=== PATIENT | male | born 1990 | race Caucasian/White ===

== ENCOUNTER 2020-05-20 09:33 | Emergency (ER) | payer MEDICARE, MEDICAID ==
[~2020-05-20] VITALS: Ht 167.6 cm; Wt 100.0 kg
[~2020-05-20 09:33] MED LIST: CLOZ100T32 PO; DOCU-350 PO; FISH1CAP49 PO; OMEP20 PO
[2020-05-20 10:15] LABS: BASOPHILS % (AUTO) 0.9 % (0.0-2.0); EOSINOPHILS % (AUTO) 2.4 % (1.0-6.0); HEMATOCRIT 43.4 % (41-53); HEMOGLOBIN 14.6 g/dL (13.5-17.5); LYMPHOCYTES # (AUTO) 2.1 K/uL (1.0-4.8); LYMPHOCYTES % (AUTO) 18.8 % (22.0-44.0); MEAN CORPUSCULAR HEMOGLOBIN 29.9 pg (26.0-34.0); MEAN CORPUSCULAR HGB CONC 33.8 G/dL (31.0-37.0); MEAN CORPUSCULAR VOLUME 89 fL (80-100); MONOCYTES # (AUTO) 0.8 K/uL (0.1-1.0); MONOCYTES % (AUTO) 7.4 % (2.0-9.0); NEUTROPHILS # (AUTO) 7.7 K/uL (1.8-7.7); NEUTROPHILS % (AUTO) 70.5 % (40.0-70.0); PLATELET COUNT (AUTO) 256 K/uL (150-450); RED BLOOD CELL COUNT(AUTO) 4.89 MIL/uL (4.50-5.90); RED CELL DISTRIBUTION WIDTH 13.3 % (11.5-14.5)
[2020-05-20 10:24] LABS: ANION GAP 3 mmol/L (8-16); CALCIUM, TOTAL 9.3 mg/dL (8.8-10.5); CARBON DIOXIDE 33 mmol/L (22-29); CHLORIDE 106 mmol/L (98-107); CREATININE 0.83 mg/dL (0.60-1.30); GLOMERULAR FILTR. RATE CALC > 60 mL/min (>60); GLUCOSE,RANDOM 102 mg/dL (70-110); SODIUM SERUM 142 mmol/L (136-145); UREA NITROGEN, BLOOD 9 mg/dL (7-18)
[2020-05-20 10:30] LABS: ALANINE AMINOTRANSFERASE 54 U/L (12-78); ALBUMIN 3.4 g/dL (3.4-5.0); ALKALINE PHOSPHATASE 81 U/L (46-116); ASPARTATE AMINOTRANSFERASE 22 U/L (15-37); BILIRUBIN,TOTAL 0.3 mg/dL (0.1-1.0); TOTAL PROTEIN, SERUM 7.9 g/dL (6.4-8.2)
[2020-05-20 11:53] LABS: AMPHET/METH SCREEN,URINE NEGATIVE (NEGATIVE); BARBITURATE SCREEN, URINE NEGATIVE (NEGATIVE); BENZODIAZEPINES SCREEN,URINE NEGATIVE (NEGATIVE); CANNABINOID SCREEN,URINE NEGATIVE (NEGATIVE); COCAINE SCREEN,URINE NEGATIVE (NEGATIVE); METHADONE SCREEN, URINE NEGATIVE (NEGATIVE); OPIATE SCREEN,URINE NEGATIVE (NEGATIVE); PHENCYCLIDINE SCREEN,URINE NEGATIVE (NEGATIVE)
[2020-05-20] MEDS ORDERED: LORazepam 1 MG TABLET PO ONE (12:00)
[2020-05-20] MEDS ORDERED: OLANZapine 5 MG TABLET PO ONE (12:00)
[2020-05-20 12:16] VITALS: BP 118/78
== END 2020-05-20 12:21 | disposition home or self-care (01) ==
LOC: EMS 09:34
DX: F20.9 Schizophrenia, unspecified (principal); F41.9 Anxiety disorder, unspecified; E11.9 Type 2 diabetes mellitus without complications; Z88.8 Allergy status to other drugs, medicaments and biological substances; Z79.899 Other long term (current) drug therapy
CPT/HCPCS: 36415; 80053; 80307; 85025; 99284; G0480

== ENCOUNTER 2021-03-23 18:59 | Inpatient (IN) | payer MEDICARE, MEDICAID ==
[~2021-03-23] VITALS: Ht 157.5 cm; Wt 71.5 kg
[2021-03-23] MEDS ORDERED: FISH1 PO (19:53)
[2021-03-23 19:56] LABS: BASOPHILS % (AUTO) 0.6 % (0.0-2.0); EOSINOPHILS % (AUTO) 2.1 % (1.0-6.0); HEMATOCRIT 45.2 % (41-53); HEMOGLOBIN 14.6 g/dL (13.5-17.5); LYMPHOCYTES # (AUTO) 2.6 K/uL (1.0-4.8); LYMPHOCYTES % (AUTO) 18.5 % (22.0-44.0); MEAN CORPUSCULAR HEMOGLOBIN 28.2 pg (26.0-34.0); MEAN CORPUSCULAR HGB CONC 32.3 G/dL (31.0-37.0); MEAN CORPUSCULAR VOLUME 88 fL (80-100); MONOCYTES # (AUTO) 0.9 K/uL (0.1-1.0); MONOCYTES % (AUTO) 6.1 % (2.0-9.0); NEUTROPHILS # (AUTO) 10.2 K/uL (1.8-7.7); NEUTROPHILS % (AUTO) 72.7 % (40.0-70.0); PLATELET COUNT (AUTO) 293 K/uL (150-450); RED BLOOD CELL COUNT(AUTO) 5.17 MIL/uL (4.50-5.90); RED CELL DISTRIBUTION WIDTH 14.8 % (11.5-14.5)
[2021-03-23 20:05] LABS: ANION GAP 7 mmol/L (8-16); CALCIUM, TOTAL 8.6 mg/dL (8.8-10.5); CARBON DIOXIDE 26 mmol/L (22-29); CHLORIDE 105 mmol/L (98-107); CREATININE 0.65 mg/dL (0.60-1.30); GLOMERULAR FILTR. RATE CALC > 60 mL/min (>60); GLUCOSE,RANDOM 112 mg/dL (70-110); POTASSIUM 3.6 mmol/L (3.5-5.1); SODIUM SERUM 138 mmol/L (136-145); UREA NITROGEN, BLOOD 10 mg/dL (7-18)
[2021-03-23 20:11] LABS: ALANINE AMINOTRANSFERASE 113 U/L (12-78); ALKALINE PHOSPHATASE 133 U/L (46-116); ASPARTATE AMINOTRANSFERASE 43 U/L (15-37); BILIRUBIN,TOTAL 0.2 mg/dL (0.1-1.0); TOTAL PROTEIN, SERUM 8.1 g/dL (6.4-8.2)
[2021-03-23 20:39] LABS: AMPHET/METH SCREEN,URINE NEGATIVE (NEGATIVE); BARBITURATE SCREEN, URINE NEGATIVE (NEGATIVE); BENZODIAZEPINES SCREEN,URINE NEGATIVE (NEGATIVE); CANNABINOID SCREEN,URINE NEGATIVE (NEGATIVE); COCAINE SCREEN,URINE NEGATIVE (NEGATIVE); METHADONE SCREEN, URINE NEGATIVE (NEGATIVE); OPIATE SCREEN,URINE NEGATIVE (NEGATIVE); PHENCYCLIDINE SCREEN,URINE NEGATIVE (NEGATIVE)
[2021-03-23] MEDS ORDERED: OLANZapine 5 MG RAPDIS TABLET PO PRN (21:00)
[2021-03-23] MEDS ORDERED: ZOLPIDEM TARTRATE 10 MG TABLET PO PRN (21:00)
[2021-03-23 22:01] LABS: COVID AG,FIA SOURCE NASOPHARYNGEAL
[2021-03-23 22:38] LABS: APPEARANCE,URINE CLEAR (CLEAR); BILIRUBIN,URINE NEGATIVE (NEGATIVE); GLUCOSE, URINE (UA) NEGATIVE (NEGATIVE); KETONES,URINE NEGATIVE (NEGATIVE); LEUKOCYTE ESTERASE ,URINE NEGATIVE (NEGATIVE); NITRATE,URINE NEGATIVE (NEGATIVE); OCCULT BLOOD,URINE NEGATIVE (NEGATIVE); PROTEIN,URINE NEGATIVE (NEGATIVE)
[2021-03-24] MEDS: LORazepam 2 MG TABLET PO PRN ×3 (00:37→17:03)
[2021-03-24 01:04] VITALS: BP 128/88
[2021-03-24 06:24] VITALS: BP 121/85
[2021-03-24] MEDS ORDERED: BACITRACIN 28 GM OINTMENT TP PRN (06:30)
[2021-03-24] MEDS ORDERED: PETROLATUM,WHITE 28 GM JELLY TP PRN (06:30)
[2021-03-24] MEDS ORDERED: BENZOCAINE/MENTHOL LOZENGE PO PRN (06:30)
[2021-03-24] MEDS ORDERED: OMEPRAZOLE 20 MG CAPSULE PO PRN (06:30)
[2021-03-24] MEDS ORDERED: MAGNESIUM HYDROXIDE SUSPENSION 30 ML UDCUP PO PRN ×2 (06:30→17:45)
[2021-03-24] MEDS ORDERED: LOPERAMIDE HCL 2 MG CAPSULE PO PRN ×2 (06:30→17:45)
[2021-03-24] MEDS ORDERED: ACETAMINOPHEN 325 MG TABLET PO PRN (06:30)
[2021-03-24] MEDS ORDERED: CloNIDine HCL 0.1 MG TABLET PO PRN (06:30)
[2021-03-24] MEDS ORDERED: ONDANSETRON HCL 4 MG TABLET PO PRN (06:30)
[2021-03-24] MEDS ORDERED: IBUPROFEN 600 MG TABLET PO PRN (06:30)
[2021-03-24] MEDS ORDERED: MAG HYDROX/AL HYDROX/SIMETH ES 30 ML SUSPENSION UDCUP PO PRN ×2 (06:30→17:45)
[2021-03-24] MEDS ORDERED: DOCUSATE SODIUM 100 MG CAPSULE PO PRN (06:30)
[2021-03-24] MEDS ORDERED: ALBUTEROL SULFATE HFA 90 MCG/PUFF 8 GM INHALER IH PRN (06:30)
[2021-03-24 07:51] LABS: CHOL/HDL RATIO 4.4 (4.2-7.3)
[2021-03-24] MEDS ORDERED: OMEGA-3/DHA/EPA/FISH OIL 1,000 MG CAPSULE PO SCH (09:00)
[2021-03-24 09:26] VITALS: BP 132/76
[2021-03-24 16:53] VITALS: BP 133/81
[2021-03-24] MEDS ORDERED: PROMETHAZINE HCL 25 MG TABLET PO PRN (17:45)
[2021-03-24] MEDS ORDERED: HydrOXYzine PAMOATE 50 MG CAPSULE PO PRN (17:45)
[2021-03-24] MEDS ORDERED: TUBERCULIN, PURIFIED PROTEIN DERIVATIVE 5 TU/0.1 ML SYRINGE ID ONE (17:45)
[2021-03-24] MEDS ORDERED: GABAPENTIN 400 MG CAPSULE PO PRN (18:15)
[2021-03-24] MEDS: MELATONIN 5 MG TABLET PO SCH (20:44)
[2021-03-25 06:06] VITALS: BP 115/69
[2021-03-25 07:19] LABS: BASOPHILS % (AUTO) 0.5 % (0.0-2.0); EOSINOPHILS % (AUTO) 1.8 % (1.0-6.0); HEMATOCRIT 48.2 % (41-53); HEMOGLOBIN 15.4 g/dL (13.5-17.5); LYMPHOCYTES # (AUTO) 3.8 K/uL (1.0-4.8); LYMPHOCYTES % (AUTO) 28.9 % (22.0-44.0); MEAN CORPUSCULAR HEMOGLOBIN 28.8 pg (26.0-34.0); MEAN CORPUSCULAR VOLUME 90 fL (80-100); MONOCYTES # (AUTO) 0.6 K/uL (0.1-1.0); MONOCYTES % (AUTO) 4.3 % (2.0-9.0); NEUTROPHILS # (AUTO) 8.4 K/uL (1.8-7.7); NEUTROPHILS % (AUTO) 64.5 % (40.0-70.0); PLATELET COUNT (AUTO) 323 K/uL (150-450); RED BLOOD CELL COUNT(AUTO) 5.37 MIL/uL (4.50-5.90); RED CELL DISTRIBUTION WIDTH 14.8 % (11.5-14.5)
[2021-03-25 07:44] LABS: ALANINE AMINOTRANSFERASE 126 U/L (12-78); ALBUMIN 3.3 g/dL (3.4-5.0); ALKALINE PHOSPHATASE 143 U/L (46-116); ANION GAP 4 mmol/L (8-16); ASPARTATE AMINOTRANSFERASE 67 U/L (15-37); BILIRUBIN,TOTAL 0.4 mg/dL (0.1-1.0); CALCIUM, TOTAL 9.1 mg/dL (8.8-10.5); CARBON DIOXIDE 31 mmol/L (22-29); CHLORIDE 102 mmol/L (98-107); CREATININE 0.86 mg/dL (0.60-1.30); GLOMERULAR FILTR. RATE CALC > 60 mL/min (>60); GLUCOSE,RANDOM 112 mg/dL (70-110); POTASSIUM 3.3 mmol/L (3.5-5.1); SODIUM SERUM 137 mmol/L (136-145); THYROID STIMULATING HORMONE 4.66 uIU/mL (0.36-3.74); TOTAL PROTEIN, SERUM 8.7 g/dL (6.4-8.2); UREA NITROGEN, BLOOD 9 mg/dL (7-18)
[2021-03-25 07:52] LABS: HEMOGLOBIN A1C 7.9 % (3.8-5.6)
[2021-03-25 08:54] VITALS: BP 129/74
[2021-03-25] MEDS ORDERED: CloZAPine 25 MG TABLET PO SCH (09:00)
[2021-03-25] MEDS: FOLIC ACID 1 MG TABLET PO SCH (09:58)
[2021-03-25] MEDS: NALTREXONE HCL 50 MG TABLET PO SCH (09:59)
[2021-03-25] MEDS: THIAMINE 100 MG TABLET PO SCH ×2 (09:59→16:32)
[2021-03-25] MEDS: MULTIVITAMINS WITH MINERALS, THERAPEUTIC TABLET PO SCH (09:59)
[2021-03-25] MEDS: OMEGA-3/DHA/EPA/FISH OIL 1,000 MG CAPSULE PO SCH (09:59)
[2021-03-25] MEDS ORDERED: POTASSIUM CHLORIDE 20 MEQ ER TABLET PO ONE (11:45)
[2021-03-25] MEDS ORDERED: HALOPERIDOL 5 MG TABLET PO PRN (16:15)
[2021-03-25] MEDS ORDERED: HALOPERIDOL DECANOATE 50 MG/ML VIAL IM ONE (16:15)
[2021-03-25 16:38] VITALS: BP 120/69
[2021-03-25] MEDS: MELATONIN 5 MG TABLET PO SCH (20:54)
[2021-03-25] MEDS ORDERED: HALOPERIDOL 10 MG TABLET PO SCH (21:00)
[2021-03-26 01:53] VITALS: BP 106/66
[2021-03-26 07:59] LABS: ANION GAP 2 mmol/L (8-16); CALCIUM, TOTAL 9.1 mg/dL (8.8-10.5); CARBON DIOXIDE 30 mmol/L (22-29); CHLORIDE 103 mmol/L (98-107); CREATININE 0.66 mg/dL (0.60-1.30); GLOMERULAR FILTR. RATE CALC > 60 mL/min (>60); GLUCOSE,RANDOM 104 mg/dL (70-110); POTASSIUM 3.6 mmol/L (3.5-5.1); SODIUM SERUM 135 mmol/L (136-145); UREA NITROGEN, BLOOD 8 mg/dL (7-18)
[2021-03-26 08:16] VITALS: BP 109/66
[2021-03-26] MEDS: MULTIVITAMINS WITH MINERALS, THERAPEUTIC TABLET PO SCH (08:30)
[2021-03-26] MEDS: SERTRALINE HCL 50 MG TABLET PO SCH (08:30)
[2021-03-26] MEDS: NALTREXONE HCL 50 MG TABLET PO SCH (08:30)
[2021-03-26] MEDS: THIAMINE 100 MG TABLET PO SCH ×2 (08:30→16:32)
[2021-03-26] MEDS: FOLIC ACID 1 MG TABLET PO SCH (08:30)
[2021-03-26] MEDS: OMEGA-3/DHA/EPA/FISH OIL 1,000 MG CAPSULE PO SCH (08:31)
[2021-03-26] MEDS ORDERED: CloZAPine 25 MG TABLET PO SCH ×2 (09:00→21:00)
[2021-03-26] MEDS ORDERED: NALT50TA PO (14:57)
[2021-03-26] MEDS ORDERED: HALO50VI4 IM (14:57)
[2021-03-26] MEDS ORDERED: SERT-439 PO (14:57)
[2021-03-26] MEDS ORDERED: OMEG-135 PO (14:57)
[2021-03-26] MEDS ORDERED: HALO10 PO ×2 (14:57→20:32)
[2021-03-26] MEDS ORDERED: MELA5TAB3 PO (14:57)
[2021-03-26 16:16] VITALS: BP 115/70
[2021-03-26] MEDS: MELATONIN 5 MG TABLET PO SCH (20:46)
[2021-03-26] MEDS ORDERED: HALOPERIDOL 10 MG TABLET PO SCH (21:00)
[2021-03-27 05:28] VITALS: BP 116/74
[2021-03-27 08:12] VITALS: BP 125/72
[2021-03-27] MEDS: THIAMINE 100 MG TABLET PO SCH (08:54)
[2021-03-27] MEDS: NALTREXONE HCL 50 MG TABLET PO SCH (08:54)
[2021-03-27] MEDS: SERTRALINE HCL 50 MG TABLET PO SCH (08:54)
[2021-03-27] MEDS: FOLIC ACID 1 MG TABLET PO SCH (08:54)
[2021-03-27] MEDS: MULTIVITAMINS WITH MINERALS, THERAPEUTIC TABLET PO SCH (08:54)
[2021-03-27] MEDS: OMEGA-3/DHA/EPA/FISH OIL 1,000 MG CAPSULE PO SCH (08:54)
[2021-03-27] MEDS ORDERED: CloZAPine 25 MG TABLET PO SCH ×2 (09:00→21:00)
[2021-03-28] MEDS ORDERED: CloZAPine 25 MG TABLET PO SCH (09:00)
[2021-03-30] MEDS ORDERED: CloZAPine 25 MG TABLET PO SCH (09:00)
[2021-03-30] MEDS ORDERED: CloZAPine 100 MG TABLET PO SCH (21:00)
[2021-03-31] MEDS ORDERED: CloZAPine 25 MG TABLET PO SCH (09:00)
[2021-03-31] MEDS ORDERED: CloZAPine 100 MG TABLET PO SCH (21:00)
[2021-04-01] MEDS ORDERED: CloZAPine 25 MG TABLET PO SCH (09:00)
[2021-04-01] MEDS ORDERED: CloZAPine 100 MG TABLET PO SCH (21:00)
[2021-04-02] MEDS ORDERED: CloZAPine 100 MG TABLET PO SCH (09:00)
[2021-04-04] MEDS ORDERED: CloZAPine 25 MG TABLET PO SCH (09:00)
[2021-04-04] MEDS ORDERED: CloZAPine 100 MG TABLET PO SCH (21:00)
[2021-04-05] MEDS ORDERED: CloZAPine 25 MG TABLET PO SCH (09:00)
[2021-04-05] MEDS ORDERED: CloZAPine 100 MG TABLET PO SCH (21:00)
[2021-04-06] MEDS ORDERED: CloZAPine 100 MG TABLET PO SCH ×2 (09:00→21:00)
[2021-04-08] MEDS ORDERED: HALOPERIDOL DECANOATE 50 MG/ML VIAL IM SCH (09:00)
== END 2021-03-27 13:30 | disposition home or self-care (01) | DRG 885 ==
LOC: EMS 18:59 → B3A 20:54 → B2X 03-24 17:34
PROVIDERS: ADMIT Psychiatry & Neurology Psychiatry; ATTEND Psychiatry & Neurology Psychiatry
DX: F25.9 Schizoaffective disorder, unspecified (principal); R45.851 Suicidal ideations; K59.00 Constipation, unspecified; F29 Unspecified psychosis not due to a substance or known physiological condition; R41.843 Psychomotor deficit; D72.829 Elevated white blood cell count, unspecified; E78.5 Hyperlipidemia, unspecified; E66.01 Morbid (severe) obesity due to excess calories; Z20.822 Contact with and (suspected) exposure to COVID-19; Z55.9 Problems related to education and literacy, unspecified; Z59.9 Problem related to housing and economic circumstances, unspecified; Z65.3 Problems related to other legal circumstances; Z91.14 Patient's other noncompliance with medication regimen; Z91.19 Patient's noncompliance with other medical treatment and regimen; Z68.28 Body mass index [BMI] 28.0-28.9, adult; Z88.8 Allergy status to other drugs, medicaments and biological substances; Z79.899 Other long term (current) drug therapy
CPT/HCPCS: 80048; 80053; 80061; 81003; 83036; 84439; 84443; 85025; 86592; 99285; A9575; G0480; J1631